=== PATIENT | male | born 1985 | race American Indian/Alaskan Native ===

== ENCOUNTER 2017-07-27 07:26 | Emergency (ER) | payer OTHER, BC ==
[2017-07-27 08:59] VITALS: BP 152/94
[2017-07-27] MEDS ORDERED: MOTRIN PO ONE (10:04)
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
[2017-07-27] MEDS ORDERED: TYLENOL #3 PO ONE (10:10)
--- NOTE | 2017-07-27 11:20 | XRay Report ---
LEFT TIBIA/FIBULA: History: Left leg pain. AP and lateral views of the left tibia/fibula demonstrate normal mineralization and contours for this patient's age. No destructive changes are noted and the adjacent soft tissues are normal. IMPRESSION: Normal left tibia/fibula.
== END 2017-07-27 11:15 | disposition home or self-care (01) ==
LOC: ED 07:26
DX: S80.12XA Contusion of left lower leg, initial encounter (principal); J45.909 Unspecified asthma, uncomplicated; V49.49XA Driver injured in collision with other motor vehicles in traffic accident, initial encounter; Y93.89 Activity, other specified; Y92.89 Other specified places as the place of occurrence of the external cause; Y99.8 Other external cause status

== ENCOUNTER 2020-10-27 01:33 | Emergency (ER) | payer BC ==
--- NOTE | 2020-10-27 05:36 | Emergency Department Report ---
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 States he was stung by something on his right IV in the left forearm on his right today. Patient not sure what it is no history of insect allergies. Symptoms include itching and burning to the right eyelid and left forearm with mild swelling. There is been no fevers or chills. There is no eye drainage. There is no nausea or vomiting, no dizziness no lightheadedness no chest pain or shortness of breath. Symptoms are exacerbated by it scratch cycle. Symptoms are relieved by it scratch cycle. Patient drove self to ED tonight there is no acute distress. - Related Data Previous Rx's Medication Instructions Recorded Last Taken Type Cyclobenzaprine [Flexeril] 10 mg PO TID PRN #14 tablet 07/27/17 Unknown Rx Ibuprofen [Motrin] 800 mg PO Q8HR PRN #30 tablet 07/27/17 Unknown Rx Famotidine [Pepcid] 20 mg PO BID #15 tablet 10/27/20 Unknown Rx diphenhydrAMINE [Benadryl CAP] 25 mg PO Q8HR PRN #30 capsule 10/27/20 Unknown Rx predniSONE [Deltasone] 40 mg PO QDAY 5 Days #10 tab 10/27/20 Unknown Rx Allergies Allergy/AdvReac Type Severity Reaction Status Date / Time No Known Allergies Allergy Unverified 07/27/17 08:55 ED Review of Systems ROS: Stated complaint: POSSIBLE ALLERGIC REACTION Other details as noted in HPI Constitutional: denies: chills, fever Eyes: other (right eye lid swelling ). denies: eye pain, eye discharge, vision change ENT: denies: ear pain, throat pain, congestion Respiratory: denies: cough, shortness of breath, wheezing Cardiovascular: denies: chest pain, palpitations Endocrine: no symptoms reported Gastrointestinal: denies: abdominal pain, nausea, diarrhea Genitourinary: denies: urgency, dysuria Musculoskeletal: denies: back pain, joint swelling, arthralgia Skin: rash (erythema right eyelid and left forearm ), pruritus. denies: lesions Neurological: denies: headache, weakness, paresthesias, vertigo Psychiatric: denies: anxiety, depression Hematological/Lymphatic: denies: easy bleeding, easy bruising ED Past Medical Hx - Past Medical History Previous Medical History?: Yes Hx Asthma: Yes - Surgical History Past Surgical History?: No - Social History Smoking Status: Never Smoker Substance Use Type: None - Medications Home Medications: Home Medications Medication Instructions Recorded Confirmed Last Taken Type Cyclobenzaprine [Flexeril] 10 mg PO TID PRN #14 tablet 07/27/17 Unknown Rx Ibuprofen [Motrin] 800 mg PO Q8HR PRN #30 tablet 07/27/17 Unknown Rx Famotidine [Pepcid] 20 mg PO BID #15 tablet 10/27/20 Unknown Rx diphenhydrAMINE [Benadryl CAP] 25 mg PO Q8HR PRN #30 capsule 10/27/20 Unknown Rx predniSONE [Deltasone] 40 mg PO QDAY 5 Days #10 tab 10/27/20 Unknown Rx ED Physical Exam - General Limitations: No Limitations General appearance: alert, in no apparent distress - Head Head exam: Present: atraumatic, normocephalic - Eye Eye exam: Present: normal appearance, PERRL, EOMI. Absent: conjunctival injection, nystagmus, periorbital swelling, periorbital tenderness Pupils: Present: normal accommodation - Expanded Eye Exam Expanded Eyelids: Erythema: Right, Swelling: Right Pupils: Regular, Round: Bilateral, Reactive: Bilateral Sclera/Conjunctival: Normal Inspection: Bilateral Visual acuity (R) = 20/: 20 Visual acuity (L) = 20/: 20 - ENT ENT exam: Present: mucous membranes moist - Neck Neck exam: Present: normal inspection, full ROM. Absent: tenderness - Respiratory Respiratory exam: Present: normal lung sounds bilaterally. Absent: respiratory distress, wheezes, rales, rhonchi, stridor, chest wall tenderness - Cardiovascular Cardiovascular Exam: Present: regular rate, normal rhythm, normal heart sounds. Absent: systolic murmur, diastolic murmur, rubs, gallop - GI/Abdominal GI/Abdominal exam: Present: soft, normal bowel sounds. Absent: distended, tenderness - Rectal Rectal exam: Present: deferred - Extremities Exam Extremities exam: Present: normal inspection, full ROM, tenderness, normal capil damaris refill - Back Exam Back exam: Present: normal inspection, full ROM. Absent: tenderness - Neurological Exam Neurological exam: Present: alert, oriented X3, CN II-XII intact, normal gait - Psychiatric Psychiatric exam: Present: normal affect, normal mood - Skin Skin exam: Present: warm, dry, intact, rash, erythema ED Course Vital Signs 10/27/20 02:08 Temperature 98.5 F Pulse Rate 90 Respiratory 16 Rate Blood Pressure 145/80 O2 Sat by Pulse 97 Oximetry ED Medical Decision Making - Medical Decision Making Visual acuity is 20/20 bilateral. Swelling to right lateral eyelid and left forearm only. This is an allergic dermatitis versus mild cellulites. Plan prednisone, Benadryl, Pepcid, follow-up with primary care doctor in 2 to 3 days. Return to ED should symptoms worsen. Critical care attestation.: If time is entered above; I have spent that time in minutes in the direct care of this critically ill patient, excluding procedure time. ED Disposition Clinical Impression: Allergic reaction to insect bite Disposition: - TO HOME OR SELFCARE Is pt being admited?: No Does the pt Need Aspirin: No Condition: Stable Instructions: Allergies, Adult, [id number], Allergies, Adult Additional Instructions: take medications as prescribed return emergency if symptoms worsen Prescriptions: diphenhydrAMINE [Benadryl CAP] 25 mg PO Q8HR PRN #30 capsule PRN Reason: allergies predniSONE [Deltasone] 40 mg PO QDAY 5 Days #10 tab Famotidine [Pepcid] 20 mg PO BID #15 tablet Referrals: JEROMY SAUNDERS MD [Staff Physician] - 3-5 Days Forms: Work/School Release Form(ED) Time of Disposition: 05:44
== END 2020-10-27 05:50 | disposition home or self-care (01) ==
LOC: ED 01:33
CPT/HCPCS: 99282